=== PATIENT | male | born 1945 | race Caucasian/White ===

== ENCOUNTER → 2016-11-01 | Outpatient (CLI) | payer MEDICARE, OTHER | END | disposition home or self-care (01) | LOC: GMAL 11:51 | PROVIDERS: ATTEND Family Medicine | DX: D51.3 Other dietary vitamin B12 deficiency anemia (principal); Z12.5 Encounter for screening for malignant neoplasm of prostate; E55.9 Vitamin D deficiency, unspecified | CPT/HCPCS: 82306; 82607; G0103 ==

== ENCOUNTER → 2017-04-27 | Outpatient (CLI) | payer MEDICARE, OTHER | END | disposition home or self-care (01) | LOC: GMAL 10:17 | PROVIDERS: ATTEND Family Medicine | DX: D51.3 Other dietary vitamin B12 deficiency anemia (principal) ==

== ENCOUNTER → 2017-06-15 | Outpatient (CLI) | payer MEDICARE, BC ==
--- NOTE | 2017-06-16 04:06 | RAD ---
Examination: XR KNEE 4 OR MORE VIEWS dated 06/15/2017 10:09 AM CDT History: PAIN IN LEFT KNEE Comparison: None Technique: Four views of the left knee FINDINGS: There is moderate medial compartment joint space narrowing and mild lateral compartment joint space narrowing. Osteophytic spurring of the patellofemoral compartment and medial compartment. No fracture. No significant joint effusion. Vascular calcifications. IMPRESSION: Moderate degenerative changes of the left knee, most prominent in the medial compartment. Electronically signed by: Boyd Wei MD 06/16/2017 4:05 AM CDT
--- NOTE | 2017-06-16 04:08 | RAD ---
Examination: XR PELVIS 1-2 VIEWS dated 06/15/2017 10:09 AM CDT History: PAIN IN LEFT HIP Comparison: None Technique: Frontal view of the pelvis FINDINGS AND IMPRESSION: Mild degenerative changes of both hips with mild joint space narrowing and marginal osteophytosis. Phleboliths within the pelvis. Vascular calcifications. Electronically signed by: Boyd Wei MD 06/16/2017 4:07 AM CDT
== END ==
LOC: RAD 10:03
PROVIDERS: ATTEND Orthopaedic Surgery
DX: M25.562 Pain in left knee (principal); M25.552 Pain in left hip; M12.852 Other specific arthropathies, not elsewhere classified, left hip; M12.851 Other specific arthropathies, not elsewhere classified, right hip; M12.862 Other specific arthropathies, not elsewhere classified, left knee; I87.8 Other specified disorders of veins

== ENCOUNTER → 2017-07-01 | Outpatient (CLI) | payer MEDICARE, BC | END | disposition home or self-care (01) | LOC: RESP 08:42 | PROVIDERS: ATTEND Orthopaedic Surgery | DX: R30.0 Dysuria (principal) ==

== ENCOUNTER 2017-07-12 05:47 | Inpatient (IN) | payer MEDICARE, BC ==
--- NOTE | 2017-07-11 09:32 | HP ---
CHIEF COMPLAINT: Left knee pain. HISTORY OF PRESENT ILLNESS: Mr. Villa is a 71-year-old male with a history of severe arthritis. Mr. Villa has had knee replacement done on the contralateral side. Mr. Villa has had conservative measures on the left side, however, has failed to gain relief. Because of that failure, he has requested, operative intervention. After discussing the risks, benefits and alternatives to that, the patient has given informed consent. PAST SURGICAL HISTORY: 1. Right total knee arthroplasty. MEDICATIONS: 1. Tylenol. 2. Omeprazole. 3. Colestipol. 4. Bystolic. 5. Lisinopril. 6. Multivitamins. ALLERGIES: PENICILLIN. CODE STATUS: Full code. IMMUNIZATIONS: Up to date. SOCIAL HISTORY: The patient does not drink, smoke or use any illicit drugs. FAMILY HISTORY: None pertinent to today's complaint. REVIEW OF SYSTEMS: Negative except as indicated in the History of Present Illness. PHYSICAL EXAMINATION: VITAL SIGNS: Blood pressure 127/76. Pulse 93. Height 5'5". Weight 193. MENTAL STATUS: The patient is awake, alert, and is able to give a good history and participate in the physical. The patient is oriented to person, place and time. SKIN: Normal tone and turgor. HEENT: Normocephalic, atraumatic. Pupils equal, round and reactive. Mucosal membranes are moist. NECK: Normal range of motion. No thyromegaly, no lymphadenopathy. CHEST: Normal respiratory excursion. CARDIAC: Regular rate and rhythm. No murmurs, rubs or gallops. MUSCULOSKELETAL: The bilateral upper extremities show full active range of motion without pain. He has intact sensation and they are warm and well perfused. He has no deformities. The right lower extremity shows full range of motion of the hip. The knee has a well-healed wound anterior. He has full extension and flexion is to about 110 degrees. The left side shows severe pain with palpation of the medial aspect of the knee and he has pain with patellar mobilization. He does maintain full range of motion of the hip. Sensation is intact throughout the extremity. It is warm and well perfused. IMAGING: X-rays show end-stage arthritis. ASSESSMENT: 1. Osteoarthritis. PLAN: The plan at this point is for total knee arthroplasty. We have discussed the risks, benefits, and alternatives to that and the patient has given informed consent. [facility][id number]
[~2017-07-12 05:47] MED LIST: LACTATED RINGERS 1,000 ML ONE; SODIUM CHL 0.9% 100ML MINI-BAG 100 ML IVPB ONE; SODIUM CHLORIDE 0.9% 100ML 100 ML IVPB ONE; SODIUM CHLORIDE 0.9% 250ML 250 ML ONE; TRANEXAMIC ACID 1,000 MG/10 ML VIAL ONE; VANCOMYCIN HCL INJ 1,000 MG VIAL IVPB ONE; ceFAZolin SODIUM 1 GM VIAL ONE
[2017-07-12] MEDS ORDERED: ceFAZolin SODIUM 1 GM VIAL ONE ×3 (06:22→21:22)
[2017-07-12] MEDS ORDERED: fentaNYL CITRATE INJ 50 MCG/ML AMP ONE (06:25)
[2017-07-12] MEDS ORDERED: MORPHINE SULFATE *EPIDURAL* 0.5 MG/ML VIAL ONE (06:25)
[2017-07-12] MEDS ORDERED: MIDAZOLAM INJ 2 MG/2 ML VIAL ONE (06:25)
[2017-07-12] MEDS: BUPIVACAINE 0.25% INJ 30 ML VIAL INJ ONE ×2 (07:39→09:25)
[2017-07-12] MEDS: VANCOMYCIN HCL INJ 1,000 MG VIAL IVPB ONE ×2 (07:39→09:00)
[2017-07-12] MEDS ORDERED: ROCURONIUM BROMIDE 10 MG/ML VIAL ONE (08:02)
[2017-07-12] MEDS ORDERED: ELECTROLYTE-A 1,000 ML IVS ONE (09:10)
[2017-07-12] MEDS ORDERED: ZOLPIDEM TARTRATE 5 MG TAB PO PRN (09:29)
[2017-07-12] MEDS ORDERED: BISACODYL SUPPOSITORY 10 MG PR PRN (09:29)
[2017-07-12] MEDS ORDERED: MORPHINE SULFATE INJ 10 MG/ML VIAL IV PRN (09:29)
[2017-07-12] MEDS ORDERED: NALOXONE HCL INJ 0.4 MG/ML VIAL IV PRN (09:29)
[2017-07-12] MEDS ORDERED: traMADol HCL 50 MG TAB PO PRN (09:29)
[2017-07-12] MEDS ORDERED: PROMETHAZINE HCL INJ 25 MG in SODIUM CHLORIDE 0.9% 50ML 50 ML IVPB PRN (09:29)
[2017-07-12] MEDS ORDERED: TEMAZEPAM 15 MG CAP PO PRN (09:29)
[2017-07-12] MEDS ORDERED: ACETAMINOPHEN 500 MG TAB PO PRN (09:29)
[2017-07-12] MEDS ORDERED: ALUMINUM & MAGNESIUM HYDROXIDE 30 ML UD PO PRN (09:29)
[2017-07-12] MEDS ORDERED: SODIUM CHLORIDE 0.9% (FLUSH) 10 ML SYG IV PRN (09:29)
[2017-07-12] MEDS ORDERED: MAGNESIUM HYDROXIDE 30 ML UD PO PRN (09:29)
[2017-07-12] MEDS ORDERED: ONDANSETRON INJ 4 MG/2 ML VIAL IV PRN (09:29)
[2017-07-12] MEDS ORDERED: PROMETHAZINE HCL INJ 12.5 MG in SODIUM CHLORIDE 0.9% 50ML 50 ML IVPB PRN (09:29)
[2017-07-12] MEDS ORDERED: TRANEXAMIC ACID INJ 1,000 MG in SODIUM CHLORIDE 0.9% 100ML 100 ML IVPB ONE (09:29)
[2017-07-12] MEDS ORDERED: MORPHINE SULFATE INJ 10 MG/ML VIAL IM PRN (09:29)
[2017-07-12] MEDS ORDERED: ACETAMINOPHEN 325 MG TAB PO PRN (09:29)
[2017-07-12] MEDS ORDERED: MORPHINE PCA 1 MG/ML 100ML 1 BAG in PREMIX BAG 1 BAG IVPB SCH (09:30)
[2017-07-12] MEDS ORDERED: MORPHINE PCA 1 MG/ML 100 ML BAG IVPB ONE (09:59)
[2017-07-12] MEDS ORDERED: raNITIdine HCL INJ 25 MG/ML VIAL IV ONE (10:00)
[2017-07-12] MEDS ORDERED: diphenhydrAMINE HCL 50 MG/ML VIAL IV ONE (10:00)
[2017-07-12] MEDS ORDERED: LIDOCAINE 1% 10 ML VIAL INJ ONE (10:00)
[2017-07-12] MEDS ORDERED: PROPOFOL 200 MG/20 ML VIAL IV ONE (10:00)
[2017-07-12] MEDS ORDERED: ePHEDrine SULF 50 MG/ML IV ONE (10:00)
[2017-07-12] MEDS ORDERED: DEXAMETHASONE INJ 10 MG/ML VIAL IV ONE (10:00)
[2017-07-12] MEDS: IV SET AND CAP CHANGE INJ INJ SCH (11:00)
[2017-07-12] MEDS: diphenhydrAMINE HCL 25 MG CAP PO PRN (13:13)
[2017-07-12] MEDS ORDERED: NAPHAZOLINE BOTH_EYES PRN (14:27)
[2017-07-12] MEDS ORDERED: [UNRECOGNIZED DRUG - OTHER] BOTH_EYES PRN (14:27)
[2017-07-12] MEDS ORDERED: PHENIRAMINE BOTH_EYES PRN (14:27)
[2017-07-12] MEDS ORDERED: SODIUM CHL 0.9% 50ML MIN-BAG+ 0 ML IVPB ONE (15:24)
[2017-07-12] MEDS ORDERED: CELECOXIB 100 MG CAP ONE (15:25)
[2017-07-12] MEDS: CELECOXIB 100 MG CAP PO SCH (15:33)
[2017-07-12] MEDS: LISINOPRIL 10 MG TAB PO SCH (15:33)
--- NOTE | 2017-07-12 15:36 | CONS ---
DATE OF CONSULTATION: 07/12/17 HISTORY OF PRESENT ILLNESS: This 71-year-old, white male was admitted to the hospital earlier this morning for elective left total knee arthroplasty because of worsening pain in the left knee. He had previously had a total knee on the right about 4 years ago and his current symptoms on the left have worsened to the point that they require surgical intervention having failed outpatient approaches to this point. He has generally been a pretty healthy judy and has had some reflux symptoms, loss of vision in the left eye and hypertension in the past. He is now postoperative, which he tolerated quite well, and does have a slight itch over most of his body and has had a history of allergies in the past. He is now going to be entering into rehabilitation sponsored by physical therapy and orthopedic surgery to allow him to get to the point where he will safely be able to return home after his significant surgery today. PAST MEDICAL HISTORY: 1. Hypertension. 2. Allergies. 3. Gastroesophageal reflux disease. 4. 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 5. Joint pains. PAST SURGICAL HISTORY: 1. Right total knee arthroplasty 4 years ago. 2. Skin cancers removed from the scalp and left anel. CURRENT MEDICATIONS: Please refer to list of verified home medications by the nurse. ALLERGIES: PENICILLIN. FAMILY HISTORY: Positive for cerebrovascular accidents, coronary artery disease , and diabetes mellitus. SOCIAL HISTORY: He has worked in the [employer] business as well as [employer] and stopped smoking in 1987. REVIEW OF SYSTEMS: GENERAL: No significant weight change, fever or chills. HEENT: Loss of vision in the left eye after vascular occlusive episode involving the artery to the retina of the left eye, very sudden onset. LUNGS: No significant shortness of breath except upon marked exertion. CARDIOVASCULAR: No significant chest pains, but he does have some heartburn occasionally. No palpitations. GASTROINTESTINAL: No nausea or vomiting. No diarrhea or blood in the stools. GENITOURINARY: No burning upon urination. EXTREMITIES: Trace of edema in the past. Arthritic pain, especially involving hands and knees as well as into the hips. NEUROLOGIC: No focal weaknesses. PHYSICAL EXAMINATION: VITAL SIGNS: Afebrile. Pulse 96. Blood pressure 114/65. Saturation 96% on 2 liters. Weight 89.2 kg measured on the bed scale. 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 NECK: Supple with no carotid bruits noted. LUNGS: Generally clear to auscultation. CARDIOVASCULAR: Heart tones are regular without any significant gallops. ABDOMEN: Soft with no organomegaly, masses or tenderness. EXTREMITIES: Left knee is dressed with a cool compress around it. He does have some itching on the skin and we will try to rinse the Hibiclens off and apply some lotion to the skin. NEUROLOGIC: No focal neurological deficits are noted. LABORATORY: No laboratory or cultures have been performed since surgery. ASSESSMENT: 1. Immediate postoperative day 0, left total knee arthroplasty performed by Dr. Cuba, orthopedic surgeon. 2. Osteoarthritis by history, having failed outpatient therapy and requiring surgical intervention to assist with symptom control. 3. Gastroesophageal reflux disease. 4. Hypertension. 5. History of allergies. 6. 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 PLAN: The patient will be started on his rehabilitation under physical therapy and orthopedic surgical supervision. Continue with analgesia. Encouraged to breathe deeply and actively contract lower extremity muscles to assist with DVT prophylaxis. Continue with various of the home medicines. Observe closely and followup in the morning. #[id number] [facility]
--- NOTE | 2017-07-12 15:47 | OP ---
DATE OF PROCEDURE: 07/12/17 PREOPERATIVE DIAGNOSIS: 1. Osteoarthritis of the left knee. POSTOPERATIVE DIAGNOSIS: 1. Osteoarthritis of the left knee. PROCEDURE: 1. Left total knee arthroplasty. SURGEON: Paramjit Cuba MD. HEAD SWAMPER: Jaden Conner CST, SA-C. ANESTHESIA: General. COMPLICATIONS: None. FINDINGS: Severe arthritis with varus deformity. INDICATION: Mr. Villa has a long history of severe knee pain. He has had contralateral knee replacement. He has failed conservative measures don this side and, therefore, has requested operative intervention. After discussing the risks, benefits and alternatives to operative intervention, the patient has given informed consent for total knee arthroplasty. PROCEDURE: The patient was brought to the Operating Room and placed in supine position. General anesthesia was induced and the patient's leg was sterilely prepped and draped. Following prepping and draping, the distal femur was exposed and using an intramedullary guide, the distal femoral cut was made. The appropriate sized cutting block was measured, pinned into place, and the anterior, posterior, and chamfer cuts were made. The ACL was transected and the tibia was subluxed. Both the medial and lateral menisci were removed. An intramedullary guide was used to make the proximal tibial cut. The appropriate sized base plate was placed and a trial polyethylene was placed. The trial femur was placed, the knee was reduced, and the knee was taken through a range of motion. The knee was stable in anterior, posterior, varus and valgus stress. The patella tracked anatomically without evidence of subluxation or dislocation. After trialing, the trial components were removed and the bony surfaces were thoroughly irrigated with saline. Following irrigation, the surfaces were dried and the final components were cemented into place. The excess cement was removed and the remaining cement was allowed to cure. The knee was again taken through a range of motion to confirm stability. The wound was then irrigated with saline and closure was performed using PDS to approximate the arthrotomy followed by closure of the subcutaneous tissues with a combination of running and interrupted Monocryl sutures. Sterile dressing was placed. The patient was awoken from anesthesia and taken to Recovery. POSTOPERATIVE INSTRUCTIONS: The patient will be weight-bearing as tolerated on postoperative day 1. COMPONENTS: [employer] Triathlon knee, size 4 femur, size 5 tibia, 9 mm insert. #[id number] [facility]
[2017-07-12] MEDS ORDERED: ceFAZolin SODIUM 1 GM in SODIUM CHL 0.9% 50ML MIN-BAG+ 50 ML IVPB SCH (16:00)
--- NOTE | 2017-07-12 16:00 | RAD ---
EXAM DESCRIPTION: Knee,Left 2 or More Views CLINICAL HISTORY: 71 years Male, TKA COMPARISON: None. FINDINGS: 3 views of the left knee show postoperative changes related to recent left knee arthroplasty. No hardware complication is identified. No fracture is seen. Gas in the left knee joint space is likely related to recent surgery. Vascular calcifications are present. IMPRESSION: Postoperative changes in the left knee without apparent complication. Vascular calcifications. Electronically signed by: Nicholas Che MD 07/12/2017 3:58 PM CDT
[2017-07-12] MEDS ORDERED: SODIUM CHLORIDE 0.9% 250ML 250 ML ONE ×2 (17:19→21:21)
[2017-07-12] MEDS ORDERED: VANCOMYCIN HCL INJ 1,000 MG VIAL IVPB ONE ×2 (17:19→21:22)
[2017-07-12] MEDS: VANCOMYCIN HCL INJ 1,000 MG in SODIUM CHLORIDE 0.9% 250ML 250 ML IVPB SCH (17:46)
[2017-07-12] MEDS: DEX 5% W/NACL 0.45% 1000ML 1,000 ML IVS PRN (17:46)
[2017-07-12] MEDS ORDERED: SODIUM CHL 0.9% 50ML MIN-BAG+ 50 ML IVPB ONE (21:21)
[2017-07-12] MEDS: NEBIVOLOL 2.5 MG TAB PO SCH (21:50)
[2017-07-12] MEDS: DOCUSATE CALCIUM 240 MG CAP PO SCH (21:50)
[2017-07-12] MEDS: TRIAMCINOLONE ACETONIDE LEFT_EAR SCH (21:51)
[2017-07-12] MEDS: TRIAMCINOLONE 0.5% TOP SCH (21:51)
[2017-07-12] MEDS ORDERED: CEFAZOLIN SODIUM 2 GRAMS IV 50 ML IVPB ONE (23:03)
[2017-07-12] MEDS: CEFAZOLIN SODIUM 2 GRAMS IV 2 GM in PREMIX BAG 1 BAG IVPB SCH (23:09)
[2017-07-12] MEDS: ENOXAPARIN SODIUM 30 MG/0.3 ML SYG SUBCU SCH (23:10)
[2017-07-13] MEDS ORDERED: OMEPRAZOLE CAP 20 MG CAP ONE (05:01)
[2017-07-13] MEDS: VANCOMYCIN HCL INJ 1,000 MG in SODIUM CHLORIDE 0.9% 250ML 250 ML IVPB SCH (05:08)
[2017-07-13] MEDS: OMEPRAZOLE CAP 20 MG CAP PO SCH (05:31)
[2017-07-13] MEDS: CYCLOBENZAPRINE HCL 10 MG TAB PO PRN ×2 (05:31→20:31)
[2017-07-13] MEDS ORDERED: CEFAZOLIN SODIUM 2 GRAMS IV 50 ML IVPB ONE (07:58)
[2017-07-13] MEDS: CEFAZOLIN SODIUM 2 GRAMS IV 2 GM in PREMIX BAG 1 BAG IVPB SCH (08:09)
[2017-07-13] MEDS: CELECOXIB 100 MG CAP PO SCH ×2 (08:09→17:55)
[2017-07-13] MEDS: TRIAMCINOLONE 0.5% TOP SCH ×3 (09:36→23:02)
[2017-07-13] MEDS: MULTIPLE VITAMINS W/ MINERALS 1 EA TAB PO SCH (09:36)
[2017-07-13] MEDS: MAGNESIUM OXIDE 400 MG TAB PO SCH (09:36)
[2017-07-13] MEDS: LISINOPRIL 10 MG TAB PO SCH (09:36)
[2017-07-13] MEDS: BENZOCAINE-MENTH LOZ (CEPACOL) 1 EA LOZ MT PRN ×2 (09:36→20:30)
[2017-07-13] MEDS: TRIAMCINOLONE ACETONIDE LEFT_EAR SCH ×3 (09:36→23:02)
[2017-07-13] MEDS: ENOXAPARIN SODIUM 30 MG/0.3 ML SYG SUBCU SCH ×2 (09:37→21:36)
[2017-07-13] MEDS ORDERED: TROLAMINE SALICYLATE CREAM 1 APPLIC TUBE TOP ONE (10:37)
[2017-07-13] MEDS ORDERED: diphenhydrAMINE HCL 50 MG/ML VIAL IV PRN (16:16)
[2017-07-13] MEDS: DEX 5% W/NACL 0.45% 1000ML 1,000 ML IVS PRN (17:55)
[2017-07-13] MEDS: HYDROcodone 5MG/APAP 325MG 1 EA TAB PO PRN (20:31)
--- NOTE | 2017-07-13 20:54 | PN ---
DATE: 07/03/17 SUPERVISING PHYSICIAN: Jason Arauz M.D. SUBJECTIVE: The patient is lying in bed. He complains of a sore throat and would like some cough drops. He also does not like to go the full 2 hours on his CPM machine. Otherwise he felt his physical therapy went well today and he has had no complaints of nausea, vomiting, diarrhea, constipation or chest pain. He was unable to void earlier today and we had to place a [place] catheter. We again had talked about his bladder training that will start tomorrow. OBJECTIVE: VITAL SIGNS: He is afebrile, heart rate 72, blood pressure 106/75, respiratory rate 18, O2 sat is 94% on room air. RESPIRATORY: Clear to auscultation bilaterally. CARDIAC: Regular rate and rhythm. ABDOMEN: Soft, nondistended, non-tender. Bowel sounds are positive. EXTREMITIES: Bilateral pedal pulses are palpable. He does have an Kenneth wrap to his left knee. NEUROLOGIC: He is awake, alert and oriented times three. LABORATORY: Hemoglobin 12.9, hematocrit 37.8. All other labs and films have been reviewed via the EMR. ASSESSMENT: 1. Left total knee arthroplasty performed by Dr. Paramjit Cuba, orthopedic surgeon, postoperative day #1. 2. Osteoarthritis by history having failed outpatient therapy and requiring surgical intervention to assist with symptom control. 3. Gastroesophageal reflux disease. 4. Hypertension. 5. History of allergies. 6. 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 PLAN: We will continue present supportive care. Strengthening and conditioning will be per Physical Therapy. Any orthopedic issues will be per Dr. Cuba, orthopedic surgeon. I have encouraged good pulmonary hygiene. I have ordered him some cough drops to be kept at the bedside. Otherwise we will continue to monitor the patient closely and follow as needed. Dr. Arauz is the collaborating physician available for consultation. #[id number] [facility]
[2017-07-13] MEDS: NEBIVOLOL 2.5 MG TAB PO SCH (21:27)
[2017-07-13] MEDS: DOCUSATE CALCIUM 240 MG CAP PO SCH (21:27)
[2017-07-14] MEDS: HYDROcodone 5MG/APAP 325MG 1 EA TAB PO PRN ×3 (00:48→21:44)
[2017-07-14] MEDS: BENZOCAINE-MENTH LOZ (CEPACOL) 1 EA LOZ MT PRN ×3 (00:49→21:44)
[2017-07-14] MEDS: diphenhydrAMINE HCL 25 MG CAP PO PRN (01:04)
[2017-07-14] MEDS: OMEPRAZOLE CAP 20 MG CAP PO SCH (06:27)
[2017-07-14] MEDS: CELECOXIB 100 MG CAP PO SCH ×2 (07:42→17:08)
--- NOTE | 2017-07-14 08:39 | PN ---
DATE: 07/12/17 SUBJECTIVE: He is doing well and he has good pain control. OBJECTIVE: Afebrile. Vital signs stable. Dressing is clean, dry and intact. ASSESSMENT: Status post total knee arthroplasty. PLAN: He will begin weight-bearing as tolerated on postoperative day 1. #[id number] [facility] [place]
--- NOTE | 2017-07-14 08:46 | PN ---
DATE: 07/13/17 SUBJECTIVE: He is doing well right now sitting in a chair with the knee bent to 90 degrees. OBJECTIVE: Afebrile. Vital signs stable. Dressing is clean, dry and intact. ASSESSMENT: Status post total knee arthroplasty. PLAN: He will continue with progression of his CPM and increasing weight- bearing as tolerated. [facility][id number] [facility]
--- NOTE | 2017-07-14 08:47 | PN ---
DATE: 07/14/17 SUBJECTIVE: He is doing well and rested overnight. OBJECTIVE: Vital signs. Afebrile. Wound is clean. There are no signs or symptoms of infection. ASSESSMENT: Status post total knee arthroplasty. PLAN: He will continue with physical therapy. #[id number] [facility]
[2017-07-14] MEDS: LISINOPRIL 10 MG TAB PO SCH (08:59)
[2017-07-14] MEDS: MAGNESIUM OXIDE 400 MG TAB PO SCH (08:59)
[2017-07-14] MEDS: MULTIPLE VITAMINS W/ MINERALS 1 EA TAB PO SCH (08:59)
[2017-07-14] MEDS: SODIUM CHLORIDE 0.9% (FLUSH) 10 ML SYG IV SCH ×2 (08:59→21:32)
[2017-07-14] MEDS: TRIAMCINOLONE ACETONIDE LEFT_EAR SCH ×2 (09:01→21:32)
[2017-07-14] MEDS: ENOXAPARIN SODIUM 30 MG/0.3 ML SYG SUBCU SCH ×2 (09:01→21:49)
[2017-07-14] MEDS: TRIAMCINOLONE 0.5% TOP SCH ×2 (09:01→21:32)
[2017-07-14] MEDS: SULFA/TRIMETH 800/160 (DS) TAB 1 EA TAB PO SCH ×2 (10:54→21:32)
--- NOTE | 2017-07-14 18:09 | PN ---
DATE: 07/14/17 SUPERVISING PHYSICIAN: Jason Arauz M.D. SUBJECTIVE: The patient is sitting on the side of his bed. His is at the bedside. Yesterday he complained of sore throat and today he said it is much improved. He has been using his cough drops. He denies any shortness of breath , nausea, vomiting, diarrhea. He feels like his physical therapy is progressing well. OBJECTIVE: He is afebrile, heart rate 104, blood pressure 127/73, respiratory rate 18, O2 sat is 92% on room air. RESPIRATORY: Clear to auscultation bilaterally. CARDIAC: Regular rate and rhythm. ABDOMEN: Soft, nondistended, non-tender. Bowel sounds are positive. EXTREMITIES: Bilateral pedal pulses are palpable at +2. The dressing to his left knee is dry and intact. He has very mild swelling to the medial and lateral aspect of his right knee, but otherwise no warmth or redness. NEUROLOGIC: He is awake, alert and oriented times three. LABORATORY: There are no labs or films to report at this time. ASSESSMENT: 1. Left total knee arthroplasty performed by Dr. Paramjit Cuba, orthopedic surgeon, postoperative day number 2. 2. Osteoarthritis by history having failed outpatient therapy and requiring surgical intervention to assist with symptom control. 3. Gastroesophageal reflux disease. 4. Hypertension. 5. History of allergies. 6. 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 PLAN: We will continue present supportive care. I have encouraged good pulmonary hygiene. He will continue strengthening and conditioning with Physical Therapy. Orthopedic issues will be per Dr. Cuba. He should be able to be discharged in the next day or so and he will participate in physical therapy with the Physical Therapy Department in [place] as an outpatient. Otherwise we will continue to monitor the patient closely and follow as needed. Dr. Arauz is the collaborating physician and available for consultation. #[id number] [facility]
[2017-07-14] MEDS: DOCUSATE CALCIUM 240 MG CAP PO SCH ×2 (21:32)
[2017-07-14] MEDS: NEBIVOLOL 2.5 MG TAB PO SCH (21:32)
[2017-07-14] MEDS: CYCLOBENZAPRINE HCL 10 MG TAB PO PRN (21:44)
[2017-07-15] MEDS: OMEPRAZOLE CAP 20 MG CAP PO SCH (06:31)
[2017-07-15] MEDS: CELECOXIB 100 MG CAP PO SCH (08:00)
[2017-07-15] MEDS: HYDROcodone 5MG/APAP 325MG 1 EA TAB PO PRN (08:00)
[2017-07-15] MEDS: CYCLOBENZAPRINE HCL 10 MG TAB PO PRN (08:00)
[2017-07-15] MEDS: LISINOPRIL 10 MG TAB PO SCH (08:01)
[2017-07-15] MEDS: MULTIPLE VITAMINS W/ MINERALS 1 EA TAB PO SCH (08:01)
[2017-07-15] MEDS: MAGNESIUM OXIDE 400 MG TAB PO SCH (08:01)
[2017-07-15] MEDS: SULFA/TRIMETH 800/160 (DS) TAB 1 EA TAB PO SCH (09:00)
[2017-07-15] MEDS: TRIAMCINOLONE ACETONIDE LEFT_EAR SCH (09:39)
[2017-07-15] MEDS: TRIAMCINOLONE 0.5% TOP SCH (09:39)
[2017-07-15] MEDS: IV SET AND CAP CHANGE INJ INJ SCH (09:40)
[2017-07-15] MEDS: ENOXAPARIN SODIUM 30 MG/0.3 ML SYG SUBCU SCH (09:40)
[2017-07-15] MEDS: SODIUM CHLORIDE 0.9% (FLUSH) 10 ML SYG IV SCH (09:40)
[2017-07-15 12:56] VITALS: BP 136/76; TEMP 97.8; O2SAT 96
--- NOTE | 2017-07-15 18:10 | PN ---
DATE: 07/15/17 SUBJECTIVE: Mr. Villa is doing really well today. He is asking to be released to go home. OBJECTIVE: He is afebrile, vital signs are stable. Wound is clean. There are no signs or symptoms of infection. ASSESSMENT: 1. Status post total knee arthroplasty. PLAN: The plan at this point is for discharge granted that he meets discharge criteria today. He will be set up for outpatient physical therapy. Until then , will continue on with physical therapy with weightbearing as tolerated and increasing CPM. [id number] [facility]
[2017-07-15] MEDS ORDERED: BISACODYL SUPPOSITORY 10 MG PR ONE (21:00)
[2017-07-15] MEDS ORDERED: MAGNESIUM HYDROXIDE 30 ML UD PO ONE (21:00)
--- NOTE | 2017-07-21 21:27 | DS ---
SUPERVISING PHYSICIAN: Jason Arauz M.D. DISCHARGE DIAGNOSIS: 1. Left total knee arthroplasty performed by Dr. Paramjit Cuba, orthopedic surgeon, postoperative day number 3. 2. Osteoarthritis having failed outpatient treatment therapy and requiring surgical intervention to assist with symptom control. 3. Gastroesophageal reflux disease. 4. Hypertension. 5. History of allergies. 6. 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 HISTORY OF PRESENT ILLNESS: Mr. Villa is a 71 year-old male patient that was admitted for elective left total knee arthroplasty on the morning of . He had had worsening pain in the left knee and had previously had a total knee on the right 4 years prior to this one, and current symptoms on the left were worsened to the point that he requiring surgical intervention having failed to respond to outpatient treatment plan. He had been generally healthy and had some reflux symptoms, loss of vision in the left eye and hypertension in the past. He was seen immediately postoperative. He tolerated surgery well. He was followed through his physical therapy efforts. LABORATORY: Postoperative H&H was 12.9 and 37.8. He had a urinalysis that was within normal limits. No radiographic studies were performed. PROCEDURES: 1. Left total knee arthroplasty performed by Dr. Paramjit Cuba. Please see his operative note for full details. HOSPITAL COURSE: Mr. Villa was admitted on 07/12/17 as noted in History of Present Illness for a left total knee arthroplasty. He was seen in the immediate postoperative state in stable condition. He did well clinically with his physical therapy and it was felt that on the morning of discharge on that he was stable enough and had progressed well enough to continue with outpatient treatment plan, therefore he was discharged. PLAN: Mr. Villa was discharged on 07/15/17 with instructions to followup with Dr. Cuba as scheduled and to continue his physical therapy with [facility] as arranged. He will resume his home medications as instructed and to take new prescriptions as directed. He was to return to the hospital should any concerning symptoms. Diet at discharge was usual diet. Activity is to ambulate with a walker as per Physical Therapy and increase as tolerated. Walking as tolerated. Prescriptions at discharge: 1. Flexeril 10 mg every 8 hours as needed, #15. 2. [place] 5/[address] Cuba. 3. Xarelto 10 mg daily for 8 days. Condition on discharge was stable and improved. [facility][id number] [facility]
== END 2017-07-15 14:40 | disposition home or self-care (01) | DRG 470 ==
LOC: AMB 05:47 → MS 11:00
PROVIDERS: ADMIT Orthopaedic Surgery; ATTEND Nurse Practitioner Family
PROC: 0SRD0J9 Replacement of Left Knee Joint with Synthetic Substitute, Cemented, Open Approach (ICD-10-PCS; principal; 2017-07-12 06:59)
DX: M17.12 Unilateral primary osteoarthritis, left knee (principal); H34.12 Central retinal artery occlusion, left eye; I10 Essential (primary) hypertension; K21.9 Gastro-esophageal reflux disease without esophagitis; E66.9 Obesity, unspecified; Z96.651 Presence of right artificial knee joint; Z88.0 Allergy status to penicillin; Z79.899 Other long term (current) drug therapy; Z87.891 Personal history of nicotine dependence; Z79.1 Long term (current) use of non-steroidal anti-inflammatories (NSAID); Z68.32 Body mass index [BMI] 32.0-32.9, adult

== ENCOUNTER → 2017-08-01 | Outpatient (CLI) | payer MEDICARE, BC | END | disposition home or self-care (01) | LOC: GMAL 14:12 | PROVIDERS: ATTEND Family Medicine | DX: N30.00 Acute cystitis without hematuria (principal) ==

== ENCOUNTER 2017-08-31 08:22 | Day surgery (SDC) | payer MEDICARE, BC ==
[~2017-08-31 08:22] MED LIST changes: -LACTATED RINGERS 1,000 ML ONE; +PROPOFOL 200 MG/20 ML VIAL IV ONE; -SODIUM CHL 0.9% 100ML MINI-BAG 100 ML IVPB ONE; -SODIUM CHLORIDE 0.9% 100ML 100 ML IVPB ONE; -SODIUM CHLORIDE 0.9% 250ML 250 ML ONE; -TRANEXAMIC ACID 1,000 MG/10 ML VIAL ONE; -VANCOMYCIN HCL INJ 1,000 MG VIAL IVPB ONE; -ceFAZolin SODIUM 1 GM VIAL ONE
[2017-08-31] MEDS ORDERED: LACTATED RINGERS 1,000 ML ONE (09:11)
[2017-08-31] MEDS ORDERED: HYDROcodone 5MG/APAP 325MG 1 EA TAB ONE (10:29)
[2017-08-31 11:14] VITALS: BP 154/79; TEMP 96.3; O2SAT 98
--- NOTE | 2017-09-01 11:23 | OP ---
DATE OF PROCEDURE: 08/31/17 PREOPERATIVE DIAGNOSIS: 1. Left knee arthrofibrosis. POSTOPERATIVE DIAGNOSIS: 1. Left knee arthrofibrosis. PROCEDURE: 1. Manipulation under anesthesia. SURGEON: Paramjit Cuba MD. PATCH WASHER: Jaden Conner CST, SA-C. ANESTHESIA: Conscious sedation. COMPLICATIONS: None. FINDINGS: Preoperative flexion to approximately 90 degrees with postoperative flexion to about 120 degrees. INDICATION: Mr. Maza has a history of having undergone total knee arthroplasty. He freely admits and his confirms that he does not do much in the way of independent exercise with regards to range of motion. Because of that, he has developed stiffness. Secondary to the ongoing stiffness, it has caused him some difficulty. After discussing the risks, benefits and alternatives to operative therapy, the patient has given informed consent for closed manipulation. PROCEDURE: The patient was brought to the Operating Room and placed in supine position. Conscious sedation was administered. Once adequate sedation had been achieved, the knee was hyperflexed. Following flexion, images were taken of the knee to ensure no acute complications. The patient was awoken from anesthesia and taken to Recovery. POSTOPERATIVE INSTRUCTIONS: The patient will be doing immediate range of motion exercises and will be going to formal physical therapy five days a week. [facility][id number] [facility]
== END 2017-08-31 11:00 | disposition home or self-care (01) ==
LOC: AMB 08:22
PROVIDERS: ATTEND Orthopaedic Surgery
DX: M24.662 Ankylosis, left knee (principal); I10 Essential (primary) hypertension; E11.9 Type 2 diabetes mellitus without complications; K21.9 Gastro-esophageal reflux disease without esophagitis; E66.9 Obesity, unspecified; Z87.891 Personal history of nicotine dependence; Z88.0 Allergy status to penicillin; Z96.653 Presence of artificial knee joint, bilateral; Z79.899 Other long term (current) drug therapy
CPT/HCPCS: 01380; 27570; 87070; J3490; J7120

== ENCOUNTER → 2019-10-10 | Outpatient (CLI) | payer MEDICARE, BC | LOC: LAB.NP 10:20 | PROVIDERS: ATTEND Family Medicine | DX: D51.9 Vitamin B12 deficiency anemia, unspecified (principal); R53.81 Other malaise; E55.9 Vitamin D deficiency, unspecified; I10 Essential (primary) hypertension; Z12.5 Encounter for screening for malignant neoplasm of prostate; Z79.899 Other long term (current) drug therapy | CPT/HCPCS: 82306; 82607; 84443; G0103 ==

== ENCOUNTER → 2020-06-02 | Outpatient (CLI) | payer MEDICARE, BC | LOC: GMAL 10:35 | PROVIDERS: ATTEND Family Medicine | DX: I10 Essential (primary) hypertension (principal); R53.81 Other malaise; Z79.899 Other long term (current) drug therapy; E78.5 Hyperlipidemia, unspecified ==

== ENCOUNTER → 2020-10-20 | Outpatient (CLI) | payer MEDICARE | LOC: GMAL 10:39 | PROVIDERS: ATTEND Family Medicine | DX: D51.3 Other dietary vitamin B12 deficiency anemia (principal); E78.5 Hyperlipidemia, unspecified; E55.9 Vitamin D deficiency, unspecified; Z12.5 Encounter for screening for malignant neoplasm of prostate; Z79.899 Other long term (current) drug therapy | CPT/HCPCS: 82306; 82607; G0103 ==